=== PATIENT | female | born 1990 | race Caucasian/White ===

== ENCOUNTER 2017-09-01 19:10 | Emergency (ER) | payer OTHER | END 2017-09-01 20:14 | disposition home or self-care (01) | LOC: E/R 20:14 | DX: S46.912A Strain of unspecified muscle, fascia and tendon at shoulder and upper arm level, left arm, initial encounter (principal); X58.XXXA Exposure to other specified factors, initial encounter; Y92.9 Unspecified place or not applicable | CPT/HCPCS: 99283; Z7502 ==

== ENCOUNTER 2018-12-02 08:41 | Emergency (ER) | payer OTHER ==
[2018-12-02] MEDS: predniSONE 20 MG TAB PO (10:07)
== END 2018-12-02 11:39 | disposition home or self-care (01) ==
LOC: FTE 08:41
DX: J02.9 Acute pharyngitis, unspecified (principal)
CPT/HCPCS: 87880; 99283